=== PATIENT | female | born 1950 | race Two or more races ===

== ENCOUNTER 2018-03-05 13:28 | Outpatient (CLI) | payer OTHER ==
[~2018-03-05 13:28] MED LIST: MIRALAX12 EA PO
== END 2018-03-05 13:40 | disposition home or self-care (01) ==
LOC: MAMO-SONO 13:28
DX: Z12.31 Encounter for screening mammogram for malignant neoplasm of breast (principal); Z87.898 Personal history of other specified conditions; N64.89 Other specified disorders of breast

== ENCOUNTER 2019-04-19 11:31 | Outpatient (CLI) | payer OTHER | END 2019-04-19 11:41 | disposition home or self-care (01) | LOC: MAMO-SONO 11:31 | DX: Z12.31 Encounter for screening mammogram for malignant neoplasm of breast (principal); Z87.898 Personal history of other specified conditions ==

== ENCOUNTER → 2019-05-16 | Outpatient (CLI) | payer OTHER | END | disposition home or self-care (01) | LOC: RAD 12:15 → NUCLEAR 05-22 15:00 | DX: M15.8 Other polyosteoarthritis (principal) ==

== ENCOUNTER 2019-06-03 10:50 | Outpatient (CLI) | payer OTHER | END 2019-06-03 11:00 | disposition home or self-care (01) | LOC: NUCLEAR 10:50 | DX: M81.0 Age-related osteoporosis without current pathological fracture (principal) ==

== ENCOUNTER → 2020-09-18 | Outpatient (CLI) | payer OTHER | END | disposition home or self-care (01) | LOC: MAMO-SONO 09:38 | DX: Z12.31 Encounter for screening mammogram for malignant neoplasm of breast (principal); N64.59 Other signs and symptoms in breast ==

== ENCOUNTER 2023-04-12 12:57 | Outpatient (CLI) | payer OTHER | END 2023-04-12 13:04 | disposition home or self-care (01) | LOC: NUCLEAR 12:57 | DX: M81.0 Age-related osteoporosis without current pathological fracture (principal) ==